=== PATIENT | female | born 1990 | race Caucasian/White ===

== ENCOUNTER 2021-05-01 09:53 | Emergency (ER) | payer OTHER ==
[~2021-05-01] VITALS: Ht 170.2 cm; Wt 112.0 kg
[~2021-05-01 09:53] MED LIST: ALBUTEROL0.63 MG/3 INH; CLARITIN10 MG PO; DELSYM30 MG/5 ML PO; HUMULIN N100 UNIT/1 SC; HUMULIN R100 UNIT/1 SC; NEB MACHINE; OMNICEF 300 MG300 MG PO; PRENATAL TABLE1 EAC1 PO
[2021-05-01 11:11] LABS: HEMOGLOBIN 14.9 gm/dl (12.3-15.3); RED BLOOD COUNT 4.81 M/UL (4.00-5.10); WHITE BLOOD COUNT 2.6 K/UL (4.5-11.0)
[2021-05-01 11:35] LABS: BUN/CREATININE RATIO 11 (0-10)
[2021-05-01] MEDS ORDERED: ALBUTEROL2.5 MG/3 M INH (18:35)
[2021-05-01] MEDS ORDERED: DECADRON6 MG PO (18:35)
[2021-05-01] MEDS ORDERED: PROAIR HFA8.5 GM INH (18:35)
== END 2021-05-01 19:30 | disposition home or self-care (01) ==
LOC: ER1 09:53
PROVIDERS: Emergency Medicine
DX: U07.1 COVID-19 (principal); J45.901 Unspecified asthma with (acute) exacerbation; F17.290 Nicotine dependence, other tobacco product, uncomplicated; Z23 Encounter for immunization
CPT/HCPCS: 71045; 80053; 82550; 82553; 83605; 83690; 83735; 83874; 84484; 84703; 85025; 85379; 87040; 93005; 94640; 94664; 94760; 96374; 99285; J1100; M0243; Q9967

== ENCOUNTER → 2021-07-11 | Outpatient (CLI) | payer OTHER ==
[~2021-07-11] MED LIST changes: +ALBUTEROL2.5 MG/3 M INH; +DECADRON6 MG PO; +PROAIR HFA8.5 GM INH
== END ==
LOC: EXRD 10:19
DX: N17.9 Acute kidney failure, unspecified (principal)
CPT/HCPCS: 76775

== ENCOUNTER 2021-10-13 14:02 | Emergency (ER) | payer OTHER ==
[2021-10-13 14:37] LABS: HEMOGLOBIN 14.7 gm/dl (12.3-15.3); RED BLOOD COUNT 4.8 M/UL (4.00-5.10); WHITE BLOOD COUNT 8.7 K/UL (4.5-11.0)
[2021-10-13 15:03] LABS: BUN/CREATININE RATIO 8 (0-10)
== END 2021-10-13 15:31 | disposition home or self-care (01) ==
LOC: ER1 14:02
PROVIDERS: Student in an Organized Health Care Education/Training Program
DX: M79.631 Pain in right forearm (principal); E11.9 Type 2 diabetes mellitus without complications; F17.290 Nicotine dependence, other tobacco product, uncomplicated
CPT/HCPCS: 73090; 80053; 85025; 99283

== ENCOUNTER 2021-12-12 13:03 | Emergency (ER) | payer OTHER ==
[2021-12-12] MEDS ORDERED: PHENERGAN 25 MG25 M1 PO (14:53)
[2021-12-12] MEDS ORDERED: IBUPROFEN800 MG PO (14:53)
== END 2021-12-12 15:03 | disposition home or self-care (01) ==
LOC: ER1 13:03
DX: B34.9 Viral infection, unspecified (principal); E11.9 Type 2 diabetes mellitus without complications; R51.9 Headache, unspecified; Z20.822 Contact with and (suspected) exposure to COVID-19; R11.0 Nausea
CPT/HCPCS: 0240U; 99283

== ENCOUNTER → 2022-02-07 | Outpatient (CLI) | payer OTHER ==
[~2022-02-07] MED LIST changes: +IBUPROFEN800 MG PO; +PHENERGAN 25 MG25 M1 PO
== END ==
LOC: KOH-I 01-30 09:45
DX: R74.8 Abnormal levels of other serum enzymes (principal); K76.0 Fatty (change of) liver, not elsewhere classified; Z90.49 Acquired absence of other specified parts of digestive tract
CPT/HCPCS: 76700